=== PATIENT | female | born 1945 | race Caucasian/White ===

== ENCOUNTER → 2016-12-16 | Outpatient (CLI) | payer MEDICARE, OTHER ==
[2016-12-16 12:39] LABS: ALT 38 U/L (9-52); AST 30 U/L (14-36); Alkaline Phosphatase 90 U/L (38-126); Anion Gap 11 mmol/L; Blood Urea Nitrogen 20 mg/dL (7-17); Calcium 9.5 mg/dL (8.4-10.2); Carbon Dioxide 22 mmol/L (22-30); Chloride 109 mmol/L (98-107); Cholesterol 209 mg/dL (<200); Glucose 97 mg/dL (74-99); HDL Cholesterol 48 mg/dL (40-60); Non-African American GFR(MDRD) >60 (>60 ml/min/1.73 sqM); Potassium 4.6 mmol/L (3.5-5.1); Sodium 142 mmol/L (137-145); Total Bilirubin 0.8 mg/dL (0.2-1.3); Total Protein 7.3 g/dL (6.3-8.2); Triglycerides 110 mg/dL (<150)
== END | disposition home or self-care (01) ==
LOC: LABWHC1 11:01
PROVIDERS: ATTEND Nurse Practitioner Family
DX: E78.5 Hyperlipidemia, unspecified (principal); I10 Essential (primary) hypertension
CPT/HCPCS: 36415; 80053; 80061

== ENCOUNTER → 2017-08-29 | Outpatient (CLI) | payer MEDICARE, OTHER ==
[2017-08-29 11:41] LABS: Basophils % (A) 1 %; Eosinophils # (A) 0.2 k/uL (0-0.7); Eosinophils % (A) 5 %; HCT 43.7 % (34.0-46.0); HGB 14.5 gm/dL (11.4-16.0); Lymphocytes # (A) 1.2 k/uL (1.0-4.8); Lymphocytes % (A) 27 %; MCH 28.5 pg (25.0-35.0); MCHC 33.1 g/dL (31.0-37.0); MCV 86.2 fL (80.0-100.0); Mean Platelet Volume 8.9; Monocytes # (A) 0.3 k/uL (0-1.0); Monocytes % (A) 7 %; Neutrophils # (A) 2.7 k/uL (1.3-7.7); Neutrophils % (A) 59 %; Platelet Count 216 k/uL (150-450); RBC 5.07 m/uL (3.80-5.40); RDW 13.2 % (11.5-15.5); WBC 4.5 k/uL (3.8-10.6)
[2017-08-29 11:50] LABS: ALT 44 U/L (9-52); AST 26 U/L (14-36); Albumin 3.9 g/dL (3.5-5.0); Alkaline Phosphatase 101 U/L (38-126); Anion Gap 9 mmol/L; Blood Urea Nitrogen 16 mg/dL (7-17); Calcium 9.5 mg/dL (8.4-10.2); Carbon Dioxide 25 mmol/L (22-30); Chloride 108 mmol/L (98-107); Cholesterol 200 mg/dL (<200); Glucose 100 mg/dL (74-99); HDL Cholesterol 47 mg/dL (40-60); LDL Cholesterol,Calculated 134 mg/dL (0-99); Potassium 4.4 mmol/L (3.5-5.1); Sodium 142 mmol/L (137-145); Total Bilirubin 0.4 mg/dL (0.2-1.3); Total Protein 6.8 g/dL (6.3-8.2); Triglycerides 97 mg/dL (<150)
== END | disposition home or self-care (01) ==
LOC: LABWHC1 10:47
PROVIDERS: ATTEND Nurse Practitioner Family
DX: Z00.00 Encounter for general adult medical examination without abnormal findings (principal); I10 Essential (primary) hypertension; E78.5 Hyperlipidemia, unspecified; E55.9 Vitamin D deficiency, unspecified; Z13.0 Encounter for screening for diseases of the blood and blood-forming organs and certain disorders involving the immune mechanism
CPT/HCPCS: 36415; 80053; 80061; 82306; 84443; 85025

== ENCOUNTER → 2017-12-24 | Outpatient (CLI) | payer MEDICARE, OTHER | END | disposition home or self-care (01) | LOC: RADMRIMAIN 09:23 | PROVIDERS: ATTEND Psychiatry & Neurology Neurology | DX: Z53.9 Procedure and treatment not carried out, unspecified reason (principal) ==

== ENCOUNTER → 2023-11-22 | Outpatient (CLI) | payer MEDICARE ==
[2023-11-22 11:43] LABS: INR 0.9 (<1.2); Partial Thromboplastin Time 23.4 sec (22.0-30.0); Prothrombin Time 10.4 sec (10.0-12.5)
[2023-11-22 16:08] LABS: ALT 23 U/L (8-44); AST 23 U/L (13-35); Albumin 4.1 g/dL (3.8-4.9); Albumin/Globulin Ratio 1.58 Ratio (1.60-3.17); Alkaline Phosphatase 110 U/L (41-126); BUN/Creat Ratio 17.33 Ratio (12.00-20.00); Blood Urea Nitrogen 15.6 mg/dL (9.0-27.0); Calcium 9.4 mg/dL (8.7-10.3); Carbon Dioxide 21.7 mmol/L (21.6-31.8); Chloride 106 mmol/L (96-109); Chol/HDL Ratio 3.83 Ratio; Globulin 2.6 g/dL (1.6-3.3); Glucose 104 mg/dL (70-110); Potassium 4.4 mmol/L (3.5-5.5); Sodium 139 mmol/L (135-145); Total Bilirubin 0.4 mg/dL (0.3-1.2); Total Protein 6.7 g/dL (6.2-8.2); VLDL Calculation 19.42 mg/dL (5.00-40.00)
[2023-11-22 16:26] LABS: HCT 46.4 % (37.2-46.3); HGB 14.7 g/dL (12.0-15.0); MCH 28.7 pg (27.0-32.0); MCHC 31.7 g/dL (32.0-37.0); MCV 90.4 FL (80.0-97.0); Mean Platelet Volume 12.7 FL (9.5-12.2); NRBC Per 100 WBC 0 X 10*3/uL (0.00-0.01); Platelet Count 194 X 10*3/uL (140-440); RBC 5.13 X 10*6/uL (4.10-5.20); RDW 14.3 % (11.5-14.5); WBC 4.21 X 10*3/uL (4.50-10.00)
== END | disposition home or self-care (01) ==
LOC: LABPAT 09:59
PROVIDERS: ATTEND Orthopaedic Surgery
DX: Z01.812 Encounter for preprocedural laboratory examination (principal); E11.9 Type 2 diabetes mellitus without complications; M17.12 Unilateral primary osteoarthritis, left knee; Z22.322 Carrier or suspected carrier of Methicillin resistant Staphylococcus aureus
CPT/HCPCS: 36415; 80053; 80061; 83036; 85027; 85610; 85730; 87070; 93005

== ENCOUNTER 2023-12-14 13:21 | Day surgery (SDC) | payer MEDICARE, OTHER ==
[~2023-12-14 13:21] MED LIST: KETOROLAC 15 MG/ML 1 ML VIAL IVP PRN; LIDOCAINE 1% (10MG/ML) FOR IV START INTRADERMA PRN; TRANEXAMIC 1,000 MG/100ML-NACL 1,000 MG in SALINE 1 100ML.BAG IV PRN; TRANEXAMIC 1,000 MG/100ML-NACL 1,000 MG in SALINE 1 100ML.BAG IVPB PRN; fentaNYL (PF) 50 MCG/ML 2 ML AMP IV PRN
[2023-12-14] MEDS: LACTATED RINGERS 1,000 ML IV ONE ×2 (13:34→17:26)
[2023-12-14] MEDS: ACETAMINOPHEN TAB 500 MG TAB PO PRN (13:39)
[2023-12-14] MEDS: DOCUSATE 100 MG CAP PO PRN (13:39)
[2023-12-14] MEDS: oxyCODONE ER 10 MG TAB.ER.12H PO PRN (13:39)
[2023-12-14] MEDS: ONDANSETRON 4 MG/2 ML VIAL IVP PRN ×2 (13:39→14:03)
[2023-12-14] MEDS: FAMOTIDINE 20 MG/2 ML VIAL IVP PRN (13:39)
[2023-12-14] MEDS: DEXAMETHASONE SOD PHOSPHATE 10 MG/ML 1 ML VIAL IV PRN (13:39)
[2023-12-14] MEDS ORDERED: NA PHOS,M-B/NA PHOS,DI-BA 133 ML ENEMA RECTAL PRN (13:46)
[2023-12-14] MEDS ORDERED: NALOXONE 0.4 MG/ML 1 ML VIAL IV PRN (13:46)
[2023-12-14] MEDS ORDERED: MAGNESIUM HYDROXIDE 2,400 MG/30 ML CUP PO PRN (13:46)
[2023-12-14] MEDS ORDERED: HYDROmorphone 0.5 MG/0.5 ML SYRINGE IVP PRN ×3 (13:46)
[2023-12-14] MEDS ORDERED: bisacodyL 10 MG SUPP RECTAL PRN (13:46)
[2023-12-14] MEDS: MIDAZOLAM 2 MG/2 ML VIAL IVP ONE (14:00)
[2023-12-14] MEDS: DEXAMETHASONE SOD PHOSPHATE 10 MG/ML 1 ML VIAL IVP STA (14:03)
[2023-12-14] MEDS ORDERED: SUCCINYLCHOLINE CHLORIDE 200 MG/10 ML VIAL IV ONE (15:32)
[2023-12-14] MEDS ORDERED: HYDROmorphone (PF) 1 MG/ML ONE (15:32)
[2023-12-14] MEDS ORDERED: MIDAZOLAM 2 MG/2 ML VIAL ONE (15:32)
[2023-12-14] MEDS ORDERED: DEXAMETHASONE SOD PHOSPHATE 4 MG/ML 1 ML VIAL ONE (15:32)
[2023-12-14] MEDS ORDERED: ROCURONIUM 10 MG/ML (5 ML VIAL) IV ONE (15:32)
[2023-12-14] MEDS ORDERED: GLYCOPYRROLATE 0.2 MG/ML 2 ML VIAL ONE (15:32)
[2023-12-14] MEDS ORDERED: fentaNYL (PF) 50 MCG/ML 2 ML AMP ONE (15:32)
[2023-12-14] MEDS ORDERED: TRANEXAMIC 1,000 MG/100ML-NACL PREMIX BAG ONE (15:32)
[2023-12-14] MEDS ORDERED: NEOSTIGMINE 1 MG/ML 10 ML VIAL ONE (15:32)
[2023-12-14] MEDS ORDERED: ePHEDrine 50 MG/ML 1 ML VIAL ONE (15:32)
[2023-12-14] MEDS ORDERED: ROPIVACAINE 5 MG/ML 30 ML VIAL ONE (15:32)
[2023-12-14] MEDS ORDERED: PROPOFOL 10 MG/ML 20 ML VIAL IV ONE (15:32)
[2023-12-14] MEDS ORDERED: LIDOCAINE 1% INJ 10MG/ML (20 ML MDV) ONE (15:32)
[2023-12-14] MEDS: ROPIVACAINE/EPI/CLONIDINE/KET 50 ML SYRINGE MISCELLANE PRN (16:16)
--- NOTE | 2023-12-14 17:58 | P.OP ---
Date of Procedure: 12/14/23 Preoperative Diagnosis: 1. Severe left knee arthritis 2. BMI 37 Postoperative Diagnosis: same Procedure(s) Performed: 1. Left total knee arthroplasty 2. Computer assisted musculoskeletal navigation using CT/MRI images Implants: 1. [place] Tri[employer] CR Femur Size #4 2. [place] [employer]lon Sibley Tibial Base Size #5 3. [place] [employer] CS poly Size #9-mm 4. [place] [employer]lon all poly patella, Size #32 Anesthesia: ANASTASIYA, regional Surgeon: Terry Bass Real Time Operator #1: Mere Vaughan Estimated Blood Loss (ml): 200 IV fluids (ml): 900 Pathology: none sent Condition: stable Disposition: PACU Indications for Procedure: I met with the patient preoperatively in the office setting and discussed treatment of their symptomatic knee arthritis. They failed a long course of nonsurgical treatment and elected to proceed with an elective total knee replacement. I discussed the potential risks and complications at length and gave them ample time to ask questions. Risks discussed included: risks from anesthesia, superficial site surgical infection, acute and/or chronic periprosthetic joint infection, delayed wound healing, drainage, wound necrosis, instability, stiffness, stiffness requiring manipulation and/or revision surgery, damage to local blood vessels or nerves, aseptic loosening of the implants, extensor mechanism issues including disruption, patellar maltracking, avascular necrosis etc., continued or worsened knee pain, generalized dissatisfaction with surgical outcome, need for revision surgery, an inability to regain preinjury level of function, DVT, PE, other medical complications, and possibly loss of life or limb. The patient voiced their understanding that while these are the most common complications other less common complications are possible. They provided both their verbal and written consent to go forward with surgery. Operative Findings: severe tricompartmental arthritis with complete cartilage loss in the medial and patellofemoral compartments Description of Procedure: The patient was identified in preoperative holding and the correct operative extremity was verified and marked with a marker. I reviewed the consent form with the patient at length. All of their questions were answered. The patient was given a block by anesthesia. They were then brought back to the operating room. They were transferred onto the operating room table where a general anesthetic, preoperative antibiotics, and tranexamic acid were administered by anesthesia. A tourniquet was applied to the proximal aspect of the operative extremity. The contralateral extremity was padded under the heel and secured to the operating room table with a nonsterile blue towel and tape. The ipsilateral arm was carefully draped across the patient's chest and secured with a pillow and foam. A post was applied over the lateral aspect of the ipsilateral thigh and a bolster was placed under the ipsilateral foot. I verified that the operative extremity was stable and the knee was flexed to 90. The operative extremity was then placed in a leg urbina, nonsterile drapes were applied, and the extremity was prepped and draped sterilely in the standard sterile fashion. Prior to starting surgery timeout was performed identifying the correct patient, operative extremity, and procedure. The leg was then elevated, exsanguinated with an Esmarch bandage, and the tourniquet was inflated. An anterior midline incision was made sharply with a scalpel. Once I had dissected deep to the superficial fascial layer medial and lateral flaps were elevated. A medial parapatellar arthrotomy was created. Upon opening the knee joint there were diffuse arthritic changes in all 3 compartments. The anterior horn of the medial meniscus were sharply released and a medial release was performed around the posterior medial corner of the knee to facilitate retractor placement. The fat pad was excised with electrocautery. The patella was found to be severely arthritic and a provisional cut was made with a sagittal saw to facilitate mobilization of the extensor mechanism during the procedure. Remnants of the ACL and PCL were then excised from the notch. 4 mm pins were then placed within the incision in the medial distal femur and proximal tibia. Arrays were applied to the pins and I verified they were completely tightened. The knee was then registered with the Backtrace I/O robot and manipulations in implant position were made to balance the knee and opitmize implant position. Using the Guilherme robotic saw all cuts were made in accordance with our plan. After all bony fragments had been removed the cuts were verified with the planar probe. The tibia was then subluxed forward and sized. The knee was brought into flexion and a lamina glue spreader was placed to allow removal of the meniscal remnants both medially and laterally as well as posterior osteophytes. Local anesthetic was then infiltrated around the joint capsule. Trial implants were then placed within the knee. Range of motion and collateral ligament tension was then evaluated. Adjustments in implant size and position were then made accordingly. Once the knee was felt to be appropriately balanced the Guilherme pins were removed. The patella was then recut, sized, and punched. A trial patellar button was then placed. With the trial components in place, the patella tracked midline. The femur was then drilled and the trial component removed. The trial tibial component was then appropriately rotated, pinned, and prepared for the keel. All trial components were then removed from the knee. The knee was thoroughly irrigated with pulsatile lavage. Cement was prepared via vacuum mixing in a bowl on the back table. I then hand pressurized cement into the femur and tibia and placed the implants beginning with the tibial base tray and poly liner, femoral component, and finally the patellar button. All extruded cement was removed including from the pin sites. Once the cement had hardened the knee was evaluated one final time with the final polyethylene liner in place. The knee had full extension and flexion and felt stable to varus and valgus stress throughout the arc of motion. The tourniquet was released and with the tourniquet down the patella tracked midline. All bleeders were controlled with electrocautery. The knee was then soaked for 3 minutes with a dilute Betadine soak. The knee was thoroughly irrigated using 3 L of sterile saline and pulsatile lavage. The extensor mechanism was then reapproximated using pop off Vicryl sutures followed by a running barbed suture. The knee was then closed in layers with a 0 strata fix for the deep fascial layer, 2-0 strata fix for the superficial subcutaneous layer and Monocryl and Steri-Strips for the skin. A sterile dressing was applied. I verified that all instrument, sponge, and sharp counts were correct. The patient was then transferred off the operating room table, extubated, and brought to recovery having tolerated the procedure well. Mere Vaughan PA-C was required as a skilled administrative assistant receptionist due to the complexity of surgery for patient positioning, draping, exposure, retraction, closure of wound, and application of dressing PLAN: The patient can weight-bear as tolerated on the operative extremity. DVT prophylaxis with aspirin 81 mg twice a day based on preoperative risk stratification. Internal medicine for perioperative medical management. 2 doses of post-operative antibiotics. Physical therapy for gait training. Follow-up in the office in 2 weeks for wound check and x-rays of the knee including an AP and lateral.
--- NOTE | 2023-12-14 18:16 | XR ---
EXAMINATION TYPE: XR knee limited LT DATE OF EXAM: 12/14/2023 6:05 PM CLINICAL INDICATION:Female, 78 years old with history of Evaluation for Postop abnormality and alignm ent; [facility] COMPARISON: 09/14/2013. TECHNIQUE: XR knee limited LT; examined in Frontal, lateral and oblique projections. FINDINGS: Status post total knee arthroplasty changes with hardware in appropriate alignment and in tact. No evidence of fracture. Subcutaneous lucencies and lucencies within the joint consistent with surgical changes. IMPRESSION: Status post total knee arthroplasty changes with hardware intact and appropriate alignment. No fractu res identified.
[2023-12-14] MEDS: SENNOSIDES-DOCUSATE SODIUM 1 EACH TAB PO SCH (21:15)
[2023-12-14] MEDS: ASPIRIN 81 MG PO SCH (21:19)
[2023-12-15] MEDS: LACTATED RINGERS 1,000 ML IV SCH (02:20)
[2023-12-15] MEDS: ACETAMINOPHEN TAB 500 MG TAB PO STA (02:20)
[2023-12-15] MEDS: DOCUSATE 100 MG CAP PO STA (02:20)
[2023-12-15] MEDS: oxyCODONE ER 10 MG TAB.ER.12H PO STA (02:21)
[2023-12-15] MEDS: SODIUM CHLORIDE 0.9% 1,000 ML IV SCH (02:21)
--- NOTE | 2023-12-15 07:47 | P.PN ---
Subjective Progress Note Date: 12/15/23 Patient is doing well this morning. She has some discomfort in her knee but is otherwise doing well. Her main complaint is swelling in her contralateral leg. She denies calf pain. She denies shortness of breath. Objective - Vital Signs Vital signs: Vital Signs Temp 97.7 F 12/15/23 07:37 Pulse 76 12/15/23 07:37 Resp 16 12/15/23 07:37 BP 119/73 12/15/23 07:37 Pulse Ox 95 12/15/23 07:37 FiO2 Intake & Output 12/14/23 12/15/23 12/15/23 18:59 06:59 18:59 Intake Total 1450 Output Total 200 Balance 1250 Weight 104.9 kg Intake: IV 1450 Output: Estimated Blood Loss 200 Other: Voiding Method Bedside Commode # Voids 1 - Exam The patient is alert and able to answer questions. LEFT LE: there is mild swelling throughout the leg and ecchymosis over the knee. The dressing is intact with a small area of strikethrough at the distal portion but no active bleeding. The thigh and calf are soft and compressible. Femoral nerve function is intact. She will to actively plantarflex and dorsiflex her ankle and her toes. RIGHT LE: there is minimal swelling in the right leg. There is no tenderness in the calf or thigh. She is able to actively plantarflex and dorsiflex her ankle and her toes. Assessment and Plan Assessment: Postoperative day #1 status post left total knee replacement, doing well Plan: 1. Weightbearing as tolerated on the operative extremity. Up with assistance. 2. DVT prophylaxis with aspirin 81 mg twice a day 3. Physical therapy for gait training and mobilization 4. Internal medicine for perioperative medical management 5. PT for gait training 6. Disposition: Plan for discharge home today when pain is controlled and the patient has passed physical therapy.
[2023-12-15 07:51] VITALS: BP 119/73; PULSE 76; RESP 16; TEMP 97.7
[2023-12-15] MEDS: ACETAMINOPHEN TAB 500 MG TAB PO PRN (07:54)
--- NOTE | 2023-12-15 08:31 | P.ANPRN ---
Procedure Note - Anesthesia - Nerve Block Performed Left Adductor Canal Single Time Out Performed: Yes Date of Procedure: 12/14/23 Procedure Start Time: 13:59 Procedure Stop Time: 14:02 Location of Patient: PreOp Indication: Acute Post-Operative Pain, Requested by Surgeon Sedation Type: Sedate with meaningful contact maintained Preparation: Sterile Prep Position: Supine Needle Types: Pajunk Needle Gauge: 21 Ultrasound used to visualize needle placement: Yes Ultrasound used to observe medication spread: Yes Blood Aspirated: No Pain Paresthesia on Injection Noted: No Resistance on Injection: Normal Image Stored and Saved: Yes Events: Uneventful and Well Tolerated (Ropivacaine 0.5% 20 cc plus dexamethasone 4 mg)
--- NOTE | 2023-12-15 08:32 | P.ANPRN ---
Procedure Note - Anesthesia - Nerve Block Performed Left iPack Single Time Out Performed: Yes Date of Procedure: 12/14/23 Procedure Start Time: 14:03 Procedure Stop Time: 14:05 Location of Patient: PreOp Indication: Acute Post-Operative Pain, Requested by Surgeon Sedation Type: Sedate with meaningful contact maintained Preparation: Sterile Prep Position: Supine Needle Types: Pajunk Needle Gauge: 21 Ultrasound used to visualize needle placement: Yes Ultrasound used to observe medication spread: Yes Blood Aspirated: No Pain Paresthesia on Injection Noted: No Resistance on Injection: Normal Image Stored and Saved: Yes Events: Uneventful and Well Tolerated (Ropivacaine 0.5% 25 cc plus dexamethasone 4 mg)
[2023-12-15 08:47] LABS: Basophils # (A) 0.01 X 10*3/uL (0.00-0.10); Basophils % (A) 0.1 %; Eosinophils # (A) 0 X 10*3/uL (0.04-0.35); Eosinophils % (A) 0 %; HCT 42.3 % (37.2-46.3); HGB 13.7 g/dL (12.0-15.0); Lymphocytes # (A) 0.64 X 10*3/uL (0.90-5.00); Lymphocytes % (A) 5.9 %; MCH 28.1 pg (27.0-32.0); MCHC 32.4 g/dL (32.0-37.0); MCV 86.7 FL (80.0-97.0); Monocytes # (A) 0.33 X 10*3/uL (0.20-1.00); NRBC Per 100 WBC 0 X 10*3/uL (0.00-0.01); Neutrophils % (A) 90.6 %; Platelet Count 183 X 10*3/uL (140-440); RBC 4.88 X 10*6/uL (4.10-5.20); WBC 10.82 X 10*3/uL (4.50-10.00)
--- NOTE | 2023-12-15 11:41 | P.DS ---
Providers Expected date of discharge: 12/15/23 Attending physician: Terry Bass Consults: 12/14/23 13:46 Consult Physician Routine Consulting Provider: Alonzo Minaya Consult Reason/Comments: medical management Do you want consulting provider notified?: Yes Primary care physician: Kristopher Devine - Discharge Diagnosis(es) (1) Primary localized osteoarthritis of left knee Current Visit: Yes Status: Acute (2) Status post total left knee replacement Current Visit: Yes Status: Acute Hospital Course: This is a 78-year-old female who was last seen with complaint of continued left knee pain. The patient has a known history of degenerative arthritis of the left knee and presents to discuss surgical options. After discussion and consideration the patient elects to proceed with total left knee arthroplasty. The patient is seen preoperatively by her primary care physician and cleared for surgery. The patient is admitted to [facility] for total left knee arthroplasty- [facility]. The procedures performed without complication or sequelae. He is doing well postoperatively. Vital signs are stable at discharge. Labs are stable at discharge. the patient is ambulating well with walker with minimal assistance. The patient is discharged to home on postop day # 1 pending medical clearance. Please see orders and refer to the med rec for accurate list of medications. Patient Condition at Discharge: Stable Plan - Discharge Summary Discharge Rx Participant: No New Discharge Prescriptions: New HYDROcodone/APAP 7.5-325MG [Rogers 7.5-325] 1 - 2 tab PO Q6H PRN #32 tab PRN Reason: Pain Omeprazole [PriLOSEC] 20 mg PO DAILY #30 cap Aspirin [Adult Low Dose Aspirin EC] 81 mg PO BID 30 Days #60 tab Sennosides [Senokot] 2 tab PO DAILY PRN #60 tablet PRN Reason: Constipation Diclofenac Sodium [Voltaren] 75 mg PO BID #60 tab No Action Pravastatin Sodium 10 mg PO QAM Aspirin 81 mg PO QAM Cholecalciferol [Vitamin D3 (25 Mcg = 1000 Iu)] 12.5 mg PO QAM Discharge Medication List Aspirin 81 mg PO QAM 06/20/15 [History] Pravastatin Sodium 10 mg PO QAM 06/20/15 [History] Cholecalciferol [Vitamin D3 (25 Mcg = 1000 Iu)] 12.5 mg PO QAM 12/12/23 [History] Aspirin [Adult Low Dose Aspirin EC] 81 mg PO BID 30 Days #60 tab 12/14/23 [Rx] Diclofenac Sodium [Voltaren] 75 mg PO BID #60 tab 12/14/23 [Rx] HYDROcodone/APAP 7.5-325MG [Rogers 7.5-325] 1 - 2 tab PO Q6H PRN #32 tab 12/14/23 [Rx] Omeprazole [PriLOSEC] 20 mg PO DAILY #30 cap 12/14/23 [Rx] Sennosides [Senokot] 2 tab PO DAILY PRN #60 tablet 12/14/23 [Rx] Follow up Appointment(s)/Referral(s): Terry Bass MD [Medical Doctor] - 2 Weeks Activity/Diet/Wound Care/Special Instructions: 1. Weight-bear as tolerated on your operative extremity unless instructed otherwise. Use a walker or other assistive device to ambulate. 2. Leave surgical dressing in place. If your dressing becomes saturated with blood, there is drainage, or the dressing becomes loose please contact the office. 3. It is okay to shower with your surgical dressing, but do not submerge in water (no hot tubs, bath's, swimming etc.) 4. Make sure to take her blood clot prevention medication as prescribed (aspirin, Eliquis, Xarelto, and Plavix are commonly prescribed medications for blood clot prevention) 5. While taking Rogers or Percocet for pain make sure you're taking a stool softener (Colace) and drink lots of water. 6. Keep all follow-up appointments as scheduled. You will usually be seen in 1-2 weeks following surgery. 7. Please contact the office with any questions or concerns [phone]
--- NOTE | 2023-12-15 12:04 | P.CONS ---
History of Present Illness - Reason for Consult Leukocytosis - History of Present Illness Patient pleasant 78-year-old female admitted for left knee arthritis and underwent left total knee arthroplasty. Patient is clinically doing well pain is well-controlled did not pass gas yet did not move her bowels yet. Patient is being discharged today denies any cough shortness of breath or dysuria. Patient has mild leukocytosis and mild perioperative hypotension REVIEW OF SYSTEMS: CONSTITUTIONAL: No fever, no malaise, no fatigue. HEENT: No recent visual problems or hearing problems. Denied any sore throat. CARDIOVASCULAR: No chest pain, orthopnea, PND, no palpitations, no syncope. PULMONARY: No shortness of breath, no cough, no hemoptysis. GASTROINTESTINAL: No diarrhea, no nausea, no vomiting, no abdominal pain. NEUROLOGICAL: No headaches, no weakness, no numbness. HEMATOLOGICAL: Denies any bleeding or petechiae. GENITOURINARY: Denies any burning micturition, frequency, or urgency. MUSCULOSKELETAL/RHEUMATOLOGICAL: Denies any joint pain, swelling, or any muscle pain. ENDOCRINE: Denies any polyuria or polydipsia. The rest of the 14-point review of systems is negative. PHYSICAL EXAMINATION: GENERAL: The patient is alert and oriented x3, not in any acute distress. Well developed, well nourished. HEENT: Pupils are round and equally reacting to light. EOMI. No scleral icterus. No conjunctival pallor. Normocephalic, atraumatic. No pharyngeal erythema. No thyromegaly. CARDIOVASCULAR: S1 and S2 present. No murmurs, rubs, or gallops. PULMONARY: Chest is clear to auscultation, no wheezing or crackles. ABDOMEN: Soft, nontender, nondistended, normoactive bowel sounds. No palpable organomegaly. MUSCULOSKELETAL: No joint swelling or deformity. EXTREMITIES: No cyanosis, clubbing, or pedal edema. NEUROLOGICAL: Gross neurological examination did not reveal any focal deficits. SKIN: No rashes. Assessment and plan -Leukocytosis reactive secondary to surgery no evidence of infection at this time no further intervention is needed -Hyperlipidemia -Gastroesophageal reflux disease -Obesity Patient is otherwise clinically doing well can be discharged from medical perspective and no medication changes were made from medical perspective Past Medical History Past Medical History: CVA/TIA, Hearing Disorder / Deafness, Hyperlipidemia, Hypertension, Renal Disease Additional Past Medical History / Comment(s): TIA's, past htn no longer takes med, ckd stage II, osteopenia, bilateral tinnitis, low back vertebra chipped. History of Any Multi-Drug Resistant Organisms: None Reported Past Surgical History: Breast Surgery, Cholecystectomy, Heart Catheterization, Joint Replacement, Tonsillectomy Additional Past Surgical History / Comment(s): breast biopsy, colonoscopy, Left knee total replacement Past Anesthesia/Blood Transfusion Reactions: Postoperative Nausea & Vomiting (PONV) Additional Past Anesthesia/Blood Transfusion Reaction / Comm: Sister PONV Past Psychological History: No Psychological Hx Reported Additional Psychological History / Comment(s): Pt resides alone. Smoking Status: Never smoker Past Alcohol Use History: None Reported Past Drug Use History: None Reported - Past Family History Father Family Medical History: No Reported History Mother Family Medical History: No Reported History Brother(s) Family Medical History: Cancer Additional Family Medical History / Comment(s): from throat cancer. Smoker/drinker. Sister(s) Family Medical History: Cancer Additional Family Medical History / Comment(s): uterine cancer. Medications and Allergies Home Medications Medication Instructions Recorded Confirmed Type Aspirin 81 mg PO QAM 06/20/15 12/12/23 History Pravastatin Sodium 10 mg PO QAM 06/20/15 12/12/23 History Cholecalciferol [Vitamin D3 (25 12.5 mg PO QAM 12/12/23 12/12/23 History Mcg = 1000 Iu)] Aspirin [Adult Low Dose Aspirin EC] 81 mg PO BID 30 Days #60 tab 12/14/23 Rx Diclofenac Sodium [Voltaren] 75 mg PO BID #60 tab 12/14/23 Rx HYDROcodone/APAP 7.5-325MG [[place] 1 - 2 tab PO Q6H PRN #32 tab 12/14/23 Rx 7.5-325] Omeprazole [PriLOSEC] 20 mg PO DAILY #30 cap 12/14/23 Rx Sennosides [Senokot] 2 tab PO DAILY PRN #60 tablet 12/14/23 Rx Allergies Allergy/AdvReac Type Severity Reaction Status Date / Time Iodinated Contrast Media Allergy Severe Anaphylaxis Verified 12/12/23 08:26 [Iodinated Contrast Media - IV Dye] Penicillins Allergy Severe Anaphylaxis Verified 12/12/23 08:26 codeine Allergy Rash/Hives Verified 06/20/15 13:00 ketorolac [From Toradol] Allergy Nausea & Verified 12/12/23 08:26 Vomiting meperidine HCl [From Demerol] Allergy Rash/Hives Verified 12/12/23 08:26 shellfish derived Allergy Rash/Hives Verified 12/12/23 08:26 Physical Exam Vitals: Vital Signs Temp Pulse Pulse Resp BP BP BP 12/15/23 07:37 97.7 F 76 16 119/73 12/15/23 07:35 97.7 F 76 16 119/73 12/15/23 04:40 96.6 F L 58 L 18 12/15/23 02:00 97.3 F L 66 16 127/81 12/15/23 00:46 78 16 133/84 12/14/23 22:46 69 16 135/75 12/14/23 20:46 96.9 F L 74 16 145/80 145/80 12/14/23 18:52 70 16 149/70 12/14/23 18:37 63 16 148/73 12/14/23 18:22 71 16 142/67 12/14/23 18:07 81 16 143/67 12/14/23 17:52 97.3 F L 96 14 134/64 12/14/23 14:04 78 18 159/72 12/14/23 13:40 96.6 F L 82 18 144/75 Pulse Ox 12/15/23 07:37 95 12/15/23 07:35 95 12/15/23 04:40 93 L 12/15/23 02:00 96 12/15/23 00:46 98 12/14/23 22:46 97 12/14/23 20:46 97 12/14/23 18:52 96 12/14/23 18:37 97 12/14/23 18:22 97 12/14/23 18:07 95 12/14/23 17:52 94 L 12/14/23 14:04 69 L 12/14/23 13:40 94 L Intake and Output 12/14/23 12/15/23 12/15/23 22:59 06:59 14:59 Intake Total 1250 Output Total 200 Balance 1050 Intake: IV 1250 Output: Estimated Blood Loss 200 Other: Voiding Method Bedside Commode # Voids 1 1 Weight 104.9 kg Results CBC & Chem 7: 12/15/23 04:44 Labs: Abnormal Lab Results - Last 24 Hours (Table) 12/15/23 Range/Units 04:44 WBC 10.82 H (4.50-10.00) X 10*3/uL MPV 13.0 H (9.5-12.2) FL Neutrophils # 9.80 H (1.80-7.70) X 10*3/uL Lymphocytes # 0.64 L (0.90-5.00) X 10*3/uL Eosinophils # 0 L (0.04-0.35) X 10*3/uL
== END 2023-12-15 12:40 | disposition home health service (06) ==
LOC: OR 13:21 → 4SSUR 17:52 → OR 12-15 12:40
PROVIDERS: ATTEND Orthopaedic Surgery
DX: M17.12 Unilateral primary osteoarthritis, left knee (principal); G89.18 Other acute postprocedural pain; M25.762 Osteophyte, left knee; Z79.82 Long term (current) use of aspirin; Z79.899 Other long term (current) drug therapy; I10 Essential (primary) hypertension; E78.5 Hyperlipidemia, unspecified; Z90.89 Acquired absence of other organs; Z90.49 Acquired absence of other specified parts of digestive tract
CPT/HCPCS: 0055T; 27447; 64447; 64999; 85025

== ENCOUNTER → 2024-06-12 | Outpatient (CLI) | payer MEDICARE | END | disposition home or self-care (01) | LOC: RADECHMAIN 07:18 | PROVIDERS: ATTEND Family Medicine | DX: R00.2 Palpitations (principal) | CPT/HCPCS: 93270 ==